=== PATIENT | female | born 1965 | race Caucasian/White ===

== ENCOUNTER 2020-09-21 16:41 | Emergency (ER) | payer BC, MEDICAID ==
[~2020-09-21] VITALS: Ht 157.5 cm; Wt 69.9 kg
[2020-09-21 16:47] VITALS: BP 153/82
[2020-09-21] MEDS ORDERED: ALBUTEROL SULFATE/IPRATROPIU 3 ML SOL IH ONE (17:45)
[2020-09-21] MEDS ORDERED: predniSONE 20 MG TAB PO ONE (17:45)
[2020-09-21] MEDS ORDERED: ALBUTEROL 0.083% 2.5 MG/3 ML NEBU INH ONE (17:45)
--- NOTE | 2020-09-21 17:45 | NUR ---
55 YEAR OLD FEMALE COMPLAINS OF COUGH, SOB, AND CHEST PAIN X 3 DAYS. PT WHEEZING BILATERAL UPON AUSCULTATION. PT AOX4, BREATHING EVEN AND UNLABORED, SKIN WARM AND DRY. BED IN LOWEST POSITION, LOCKED, BED RAIL UPX1. PMH - HTN, DM2, ASTHMA, COPD ALLERGIES - NKA
[2020-09-21] MEDS ORDERED: PRED20TA5 PO (18:51)
[2020-09-21] MEDS ORDERED: IBUP-2213 PO (18:51)
[2020-09-21 19:08] VITALS: BP 153/82
--- NOTE | 2020-09-21 19:08 | NUR ---
Patient discharged with v/s stable. Written and verbal after care instructions about asthma, chest pain given and explained. Patient alert, oriented and verbalized understanding of instructions. Ambulatory with steady gait. All questions addressed prior to discharge. ID band removed. Patient advised to follow up with PMD. Rx of ibuprofen, prednisoen given. Patient educated on indication of medication including possible reaction and side effects. Opportunity to ask questions provided and answered.
== END 2020-09-21 19:08 | disposition home or self-care (01) ==
LOC: MED 16:41
DX: R07.9 Chest pain, unspecified (principal); J45.901 Unspecified asthma with (acute) exacerbation; E11.9 Type 2 diabetes mellitus without complications; I10 Essential (primary) hypertension; Z90.49 Acquired absence of other specified parts of digestive tract
CPT/HCPCS: 71045; 81002; 81025; 93005; 94640; 99283; J7512; J7613

== ENCOUNTER 2021-06-10 12:05 | Emergency (ER) | payer BC, MEDICAID ==
[~2021-06-10] VITALS: Ht 157.5 cm; Wt 75.3 kg
[~2021-06-10 12:05] MED LIST: IBUP-2213 PO; PRED20TA5 PO
[2021-06-10 12:14] VITALS: BP 151/69
--- NOTE | 2021-06-10 12:20 | NUR ---
PATIENT AMBULATED TO BED 3.
--- NOTE | 2021-06-10 12:49 | NUR ---
[employer] AT PT BEDSIDE.
[2021-06-10 13:41] LABS: BASOPHILS # (AUTO) 0.1 K/uL (0.00-0.22); BASOPHILS % (AUTO) 0.9 % (0.0-2.0); EOSINOPHILS # (AUTO) 0.1 K/uL (0-0.4); EOSINOPHILS % (AUTO) 2.6 % (0.0-4.0); HEMATOCRIT 39.6 % (36-48); HEMOGLOBIN 13.4 g/dL (12.0-16.0); LYMPHOCYTES # (AUTO) 2.1 K/uL (2.5-16.5); MEAN CORPUSCULAR HEMOGLOBIN 29 pg (27-31); MEAN CORPUSCULAR HGB CONC 34 g/dL (33-37); MEAN CORPUSCULAR VOLUME 84.5 fL (80-94); MONOCYTES # (AUTO) 0.4 K/uL (0.8-1.0); MONOCYTES % (AUTO) 6.3 % (1.7-9.3); NEUTROPHILS # (AUTO) 3.1 K/uL (1.8-7.7); NEUTROPHILS % (AUTO) 54.2 % (42.2-75.2); PLATELET COUNT (AUTO) 311 K/uL (140-450); RED BLOOD CELL COUNT(AUTO) 4.68 MIL/uL (4.20-5.40); WHITE BLOOD COUNT (AUTO) 5.8 K/uL (4.8-10.8)
[2021-06-10 13:54] LABS: ANION GAP 13.5 (8-16); CARBON DIOXIDE 27.7 mmol/L (21-32); CREATININE 0.8 mg/dL (0.6-1.3); POTASSIUM 3.2 mmol/L (3.5-5.1)
--- NOTE | 2021-06-10 14:05 | NUR ---
Patient appears to be resting comfortably in bed. Vital Signs within normal limits. Respirations even and unlabored. Safety measures in place and Call light in reach
[2021-06-10] MEDS ORDERED: PRED20TA5 PO (14:10)
[2021-06-10] MEDS ORDERED: IBUP-2213 PO (14:10)
[2021-06-10 14:35] VITALS: BP 129/72
--- NOTE | 2021-06-10 14:35 | NUR ---
Patient discharged with v/s stable. Written and verbal after care instructions given and explained with teachback. Patient alert, oriented and verbalized understanding of instructions. Ambulatory with steady gait. All questions addressed prior to discharge. ID band removed. Patient advised to follow up with PMD. Rx of IBUPROFEN/PREDNISONE given. Patient educated on indication of medication including possible reaction and side effects. Opportunity to ask questions provided and answered.
== END 2021-06-10 14:35 | disposition home or self-care (01) ==
LOC: MED 12:05
DX: R05.9 Cough, unspecified (principal); R06.02 Shortness of breath; R42 Dizziness and giddiness; E11.9 Type 2 diabetes mellitus without complications; I10 Essential (primary) hypertension; J45.909 Unspecified asthma, uncomplicated; Z90.49 Acquired absence of other specified parts of digestive tract
CPT/HCPCS: 36415; 70450; 71045; 80048; 81002; 85025; 99285; Q0092

== ENCOUNTER 2023-10-25 21:02 | Inpatient (IN) | payer BC, MEDICAID ==
[~2023-10-25] VITALS: Ht 157.5 cm; Wt 81.8 kg
[~2023-10-25 21:02] MED LIST changes: +ACET-8905 PO; +ALBU1.25 IH; +AMLO5TAB PO; +ATA25 PO; +AZIT250T4 PO; +BACL10TA4 PO; +BENZ200C4 PO; +ERGO-30 PO; +FEXO1TAB PO; +FURO-572 PO; +GABA400C PO; +HUM SUBQ; +INSU100S22 SUBQ; +INSU300I2 SQ; +LEVO0.2T5 PO; +LOSA-269 PO; +MECL-303 PO; +MEMA10TA22 PO; +METH4TAB1 PO; +MONT-72 PO; +PAM25 PO; +PANT40EC PO; +PHE25S RC; +POTA10TA70 PO; -PRED20TA5 PO; +PRON INH; +SAXA5TAB PO; +UMEC1POW IH; +[UNRECOGNIZED DRUG - CODE] PO
[2023-10-25 21:04] VITALS: BP 155/88; PULSE 110; RESP 28; TEMP 97.8; O2SAT 94
[2023-10-25 21:40] LABS: BASOPHILS # (AUTO) 0.1 K/uL (0.00-0.22); BASOPHILS % (AUTO) 1.3 % (0.0-2.0); EOSINOPHILS # (AUTO) 0.3 K/uL (0-0.4); EOSINOPHILS % (AUTO) 2.8 % (0.0-4.0); HEMATOCRIT 37.8 % (36-48); HEMOGLOBIN 12.4 g/dL (12.0-16.0); LYMPHOCYTES # (AUTO) 1.9 K/uL (2.5-16.5); LYMPHOCYTES % (AUTO) 20.2 % (20.5-51.1); MEAN CORPUSCULAR HEMOGLOBIN 27 pg (27-31); MEAN CORPUSCULAR HGB CONC 33 g/dL (33-37); MEAN CORPUSCULAR VOLUME 82.8 fL (80-94); MONOCYTES # (AUTO) 0.4 K/uL (0.8-1.0); MONOCYTES % (AUTO) 4.6 % (1.7-9.3); NEUTROPHILS # (AUTO) 6.6 K/uL (1.8-7.7); NEUTROPHILS % (AUTO) 71.1 % (42.2-75.2); PLATELET COUNT (AUTO) 300 K/uL (140-450); RED BLOOD CELL COUNT(AUTO) 4.56 MIL/uL (4.20-5.40); WHITE BLOOD COUNT (AUTO) 9.2 K/uL (4.8-10.8)
[2023-10-25 21:46] LABS: ANION GAP 16.7 (8-16); CALCIUM 8.7 mg/dL (8.5-10.1); CARBON DIOXIDE 25.5 mmol/L (21-32); POTASSIUM 3.2 mmol/L (3.5-5.1)
[2023-10-25 21:51] LABS: INR 1.07 (0.8-1.2); PARTIAL THROMBOPLASTIN TIME 24.5 secs (22-35.6); PROTHROMBIN TIME 11.2 secs (10.8-13.4)
[2023-10-25] MEDS: FUROSEMIDE 40 MG/4 ML VIAL IVP ONE (22:09)
[2023-10-25] MEDS: ALBUTEROL SULFATE/IPRATROPIU 3 ML SOL IH ONE (22:18)
[2023-10-25 22:19] VITALS: PULSE 103; RESP 24; O2SAT 97
[2023-10-25] MEDS ORDERED: methylPREDNISolone SS 125 MG in WATER STERILE 2 ML IV ONE (22:50)
[2023-10-25] MEDS: methylPREDNISolone SS 125 MG/2 ML VIAL IVP ONE (23:06)
[2023-10-25] MEDS: MAG SULF 2000 MG/WATER PREMIX 50 ML IV ONE (23:11)
[2023-10-25] MEDS ORDERED: PIPERACILLIN/TAZOBACTAM 3.375 GM VIAL IV ONE (23:12)
[2023-10-25] MEDS: PIPERACILLIN/TAZOBACTAM 3.375 GM in DEXTROSE 5% 50 ML IV ONE (23:21)
[2023-10-25] MEDS ORDERED: AZITHROMYCIN 500 MG INJ VIAL IV ONE (23:26)
[2023-10-25] MEDS: AZITHROMYCIN 500 MG in DEXTROSE 5% 250 ML IV ONE (23:39)
[2023-10-25 23:58] LABS: LACTIC ACID 3.5 mmol/L (0.4-2.0)
[2023-10-26] VITALS (9 sets, daily range): BP systolic 130–145; BP diastolic 70–87; PULSE 83–117; RESP 18–22; TEMP 98–98.6; O2SAT 95–100
[2023-10-26] MEDS: ALBUTEROL 0.083% 2.5 MG/3 ML NEBU INH ONE (03:16)
[2023-10-26] MEDS ORDERED: ACETAMINOPHEN EXTRA STRENGTH 500 MG TAB PO ONE (05:45)
[2023-10-26] MEDS: HYDROcodone/APAP 5/325 MG 1 TAB TAB PO PRN (05:52)
[2023-10-26 07:33] LABS: BASOPHILS % (AUTO) 0.3 % (0.0-2.0); HEMATOCRIT 37.8 % (36-48); HEMOGLOBIN 12.6 g/dL (12.0-16.0); LYMPHOCYTES # (AUTO) 0.4 K/uL (2.5-16.5); LYMPHOCYTES % (AUTO) 4.7 % (20.5-51.1); MEAN CORPUSCULAR HEMOGLOBIN 27 pg (27-31); MEAN CORPUSCULAR HGB CONC 33 g/dL (33-37); MEAN CORPUSCULAR VOLUME 82.4 fL (80-94); MONOCYTES # (AUTO) 0.1 K/uL (0.8-1.0); MONOCYTES % (AUTO) 0.8 % (1.7-9.3); NEUTROPHILS # (AUTO) 8.3 K/uL (1.8-7.7); NEUTROPHILS % (AUTO) 94.2 % (42.2-75.2); PLATELET COUNT (AUTO) 301 K/uL (140-450); RED BLOOD CELL COUNT(AUTO) 4.59 MIL/uL (4.20-5.40); RED CELL DISTRIBUTION WIDTH 14.9 % (11.6-13.7); WHITE BLOOD COUNT (AUTO) 8.8 K/uL (4.8-10.8)
[2023-10-26] MEDS ORDERED: [UNRECOGNIZED DRUG - OTHER] IH SCH (09:00)
[2023-10-26] MEDS: HYDROXYZINE HYDROCHLORIDE 25 MG TAB PO SCH (09:32)
[2023-10-26] MEDS: methylPREDNISolone SS 125 MG/2 ML VIAL IVP SCH (09:32)
[2023-10-26] MEDS: PANTOPRAZOLE 40 MG TABEC PO SCH (09:33)
[2023-10-26] MEDS: LOSARTAN 25 MG TAB PO SCH (09:33)
[2023-10-26] MEDS: BACLOFEN 10 MG TAB PO SCH (09:33)
[2023-10-26] MEDS: MONTELUKAST SODIUM 10 MG TAB PO SCH (09:34)
[2023-10-26] MEDS: amLODIPine 5 MG TAB PO SCH (09:34)
[2023-10-26] MEDS: LEVOTHYROXINE 0.1 MG TAB PO SCH (09:34)
[2023-10-26] MEDS: GABAPENTIN 100 MG CAP PO SCH (09:35)
[2023-10-26] MEDS: FUROSEMIDE 20 MG/2 ML VIAL IVP SCH (10:26)
[2023-10-26] MEDS: POTASSIUM CHLORIDE 10 MEQ TABER PO SCH (10:26)
[2023-10-26] MEDS ORDERED: DEXTROSE 50% 50 ML SYR IVP PRN (11:45)
[2023-10-26 11:50] LABS: ANION GAP 13.7 (8-16); CALCIUM 8.6 mg/dL (8.5-10.1); CARBON DIOXIDE 29.3 mmol/L (21-32); CREATININE 1.1 mg/dL (0.6-1.3)
[2023-10-26] MEDS: POTASSIUM CHLORIDE 40 MEQ, LIDOCAINE 1% 25 MG in NACL 0.9% 250 ML IV SCH (12:13)
[2023-10-26] MEDS: ALBUTEROL SULFATE/IPRATROPIU 3 ML SOL IH SCH (15:36)
[2023-10-26] MEDS: BLOOD GLUCOSE MONITORING 1 DEV DEV FS SCH (16:41)
[2023-10-26] MEDS: NORTRIPTYLINE 25 MG CAP PO SCH (17:12)
[2023-10-26] MEDS: INSULIN LISPRO SLIDING SCALE 100 UNITS/ML VIAL SUBQ PRN (17:20)
[2023-10-26] MEDS: FUROSEMIDE 40 MG/4 ML VIAL IVP SCH (23:09)
[2023-10-26] MEDS: carvediloL 3.125 MG TAB PO SCH (23:10)
[2023-10-26] MEDS: MEMANTINE 10 MG TAB PO SCH (23:11)
[2023-10-27] VITALS (11 sets, daily range): BP systolic 80–140; BP diastolic 48–76; PULSE 76–106; RESP 16–20; TEMP 97–99.8; O2SAT 95–98
[2023-10-27 05:56] LABS: BASOPHILS % (AUTO) 0.1 % (0.0-2.0); HEMATOCRIT 35.2 % (36-48); HEMOGLOBIN 11.5 g/dL (12.0-16.0); LYMPHOCYTES # (AUTO) 0.7 K/uL (2.5-16.5); LYMPHOCYTES % (AUTO) 5.1 % (20.5-51.1); MEAN CORPUSCULAR HEMOGLOBIN 27 pg (27-31); MEAN CORPUSCULAR HGB CONC 33 g/dL (33-37); MEAN CORPUSCULAR VOLUME 83.2 fL (80-94); MONOCYTES # (AUTO) 0.1 K/uL (0.8-1.0); MONOCYTES % (AUTO) 1.1 % (1.7-9.3); NEUTROPHILS # (AUTO) 13.2 K/uL (1.8-7.7); NEUTROPHILS % (AUTO) 93.7 % (42.2-75.2); PLATELET COUNT (AUTO) 303 K/uL (140-450); RED BLOOD CELL COUNT(AUTO) 4.24 MIL/uL (4.20-5.40); RED CELL DISTRIBUTION WIDTH 15.3 % (11.6-13.7)
[2023-10-27 06:10] LABS: WHITE BLOOD COUNT (AUTO) 14.1 K/uL (4.8-10.8)
[2023-10-27 06:44] LABS: CALCIUM 8.5 mg/dL (8.5-10.1); CARBON DIOXIDE 28.3 mmol/L (21-32); CREATININE 1.1 mg/dL (0.6-1.3); POTASSIUM 3.3 mmol/L (3.5-5.1)
[2023-10-27] MEDS: LEVOTHYROXINE 0.1 MG TAB PO SCH (07:01)
[2023-10-27] MEDS: SPIRONOLACTONE 25 MG TAB PO SCH (09:51)
[2023-10-27] MEDS: ATORVASTATIN 20 MG TAB PO SCH (09:54)
[2023-10-27] MEDS: ACETAMINOPHEN EXTRA STRENGTH 500 MG TAB PO SCH (11:13)
[2023-10-27] MEDS: POTASSIUM CHLORIDE 40 MEQ, LIDOCAINE 1% 25 MG in NACL 0.9% 250 ML IV SCH (11:40)
[2023-10-27] MEDS: FUROSEMIDE 40 MG/4 ML VIAL IVP SCH (18:35)
[2023-10-27] MEDS: MIDODRINE 5 MG TAB PO SCH (18:35)
[2023-10-27] MEDS: ALBUTEROL 0.083% 2.5 MG/3 ML NEBU INH PRN (19:48)
[2023-10-27] MEDS: DOCUSATE SODIUM 100 MG GELCAP PO SCH (21:59)
[2023-10-28] VITALS (14 sets, daily range): BP systolic 119–154; BP diastolic 61–97; PULSE 79–108; RESP 16–25; TEMP 97–98.1; O2SAT 93–100
[2023-10-28 05:57] LABS: HEMATOCRIT 36.7 % (36-48); HEMOGLOBIN 11.9 g/dL (12.0-16.0); LYMPHOCYTES # (AUTO) 0.6 K/uL (2.5-16.5); LYMPHOCYTES % (AUTO) 3.5 % (20.5-51.1); MEAN CORPUSCULAR HEMOGLOBIN 27 pg (27-31); MEAN CORPUSCULAR HGB CONC 33 g/dL (33-37); MEAN CORPUSCULAR VOLUME 82.6 fL (80-94); MONOCYTES # (AUTO) 0.2 K/uL (0.8-1.0); NEUTROPHILS # (AUTO) 15.9 K/uL (1.8-7.7); NEUTROPHILS % (AUTO) 95.5 % (42.2-75.2); PLATELET COUNT (AUTO) 339 K/uL (140-450); RED BLOOD CELL COUNT(AUTO) 4.44 MIL/uL (4.20-5.40); WHITE BLOOD COUNT (AUTO) 16.7 K/uL (4.8-10.8)
[2023-10-28 06:27] LABS: ANION GAP 12.4 (8-16); CALCIUM 8.6 mg/dL (8.5-10.1); CARBON DIOXIDE 28.9 mmol/L (21-32); CREATININE 1.1 mg/dL (0.6-1.3); POTASSIUM 3.3 mmol/L (3.5-5.1)
[2023-10-28] MEDS: GABAPENTIN 200 MG, GABAPENTIN 600 MG PO SCH (09:45)
[2023-10-28] MEDS: GABAPENTIN 300 MG CAP ONE ×3 (09:45→18:07)
[2023-10-28] MEDS: GABAPENTIN 100 MG CAP ONE ×3 (09:45→18:08)
[2023-10-28] MEDS: AZITHROMYCIN 500 MG in DEXTROSE 5% 250 ML IV SCH (12:00)
[2023-10-28] MEDS: KCL 20 MEQ IN 100 mL PREMIX 200 ML IV SCH (12:00)
[2023-10-28] MEDS: POTASSIUM CHLORIDE 20% 40 MEQ/15 ML UDC PO SCH (17:09)
[2023-10-29] VITALS (9 sets, daily range): BP systolic 131–157; BP diastolic 90–92; PULSE 60–100; RESP 18–21; TEMP 97.6–98.6; O2SAT 93–99
[2023-10-29] MEDS: INSULIN LANTUS 100 UNITS/ML 10 ML VIAL SUBQ PRN (00:15)
[2023-10-29 06:20] LABS: BASOPHILS % (AUTO) 0.1 % (0.0-2.0); HEMATOCRIT 37.1 % (36-48); HEMOGLOBIN 12.1 g/dL (12.0-16.0); LYMPHOCYTES # (AUTO) 0.6 K/uL (2.5-16.5); LYMPHOCYTES % (AUTO) 5.3 % (20.5-51.1); MEAN CORPUSCULAR HEMOGLOBIN 27 pg (27-31); MEAN CORPUSCULAR HGB CONC 33 g/dL (33-37); MEAN CORPUSCULAR VOLUME 82.7 fL (80-94); MONOCYTES # (AUTO) 0.2 K/uL (0.8-1.0); MONOCYTES % (AUTO) 2.1 % (1.7-9.3); NEUTROPHILS # (AUTO) 10.3 K/uL (1.8-7.7); NEUTROPHILS % (AUTO) 92.5 % (42.2-75.2); PLATELET COUNT (AUTO) 311 K/uL (140-450); RED BLOOD CELL COUNT(AUTO) 4.48 MIL/uL (4.20-5.40); WHITE BLOOD COUNT (AUTO) 11.1 K/uL (4.8-10.8)
[2023-10-29 06:59] LABS: ANION GAP 10.4 (8-16); CALCIUM 9.1 mg/dL (8.5-10.1); CARBON DIOXIDE 32.1 mmol/L (21-32); POTASSIUM 3.5 mmol/L (3.5-5.1)
[2023-10-29] MEDS: GABAPENTIN 300 MG CAP ONE ×3 (09:04→17:25)
[2023-10-29] MEDS: GABAPENTIN 100 MG CAP ONE ×3 (09:04→17:25)
[2023-10-29] MEDS: FUROSEMIDE 40 MG/4 ML VIAL IVP SCH ×2 (14:00→22:00)
[2023-10-29] MEDS: INSULIN LANTUS 100 UNITS/ML 10 ML VIAL SUBQ SCH (22:42)
[2023-10-30] VITALS (9 sets, daily range): BP systolic 125–135; BP diastolic 62–77; PULSE 62–92; RESP 18–21; TEMP 97–98.1; O2SAT 93–97
[2023-10-30 06:19] LABS: CARBON DIOXIDE 35.4 mmol/L (21-32); CREATININE 1.2 mg/dL (0.6-1.3); POTASSIUM 3.4 mmol/L (3.5-5.1)
[2023-10-30 06:38] LABS: BASOPHILS % (AUTO) 0.1 % (0.0-2.0); HEMATOCRIT 37.6 % (36-48); HEMOGLOBIN 12.2 g/dL (12.0-16.0); LYMPHOCYTES # (AUTO) 0.5 K/uL (2.5-16.5); LYMPHOCYTES % (AUTO) 5.4 % (20.5-51.1); MEAN CORPUSCULAR HEMOGLOBIN 27 pg (27-31); MEAN CORPUSCULAR HGB CONC 33 g/dL (33-37); MEAN CORPUSCULAR VOLUME 82.7 fL (80-94); MONOCYTES # (AUTO) 0.3 K/uL (0.8-1.0); NEUTROPHILS # (AUTO) 8.8 K/uL (1.8-7.7); NEUTROPHILS % (AUTO) 91.5 % (42.2-75.2); PLATELET COUNT (AUTO) 324 K/uL (140-450); RED BLOOD CELL COUNT(AUTO) 4.55 MIL/uL (4.20-5.40); RED CELL DISTRIBUTION WIDTH 14.6 % (11.6-13.7); WHITE BLOOD COUNT (AUTO) 9.6 K/uL (4.8-10.8)
[2023-10-30] MEDS: GABAPENTIN 300 MG CAP ONE ×3 (09:52→17:56)
[2023-10-30] MEDS: GABAPENTIN 100 MG CAP ONE ×3 (09:52→17:55)
[2023-10-30] MEDS ORDERED: POTASSIUM CHLORIDE 10 MEQ TABER PO SCH (11:25)
[2023-10-30] MEDS: POTASSIUM CHLORIDE 20% 40 MEQ/15 ML UDC PO SCH (12:03)
[2023-10-30] MEDS: metOLazone 5 MG TAB PO SCH (12:03)
[2023-10-30] MEDS: INSULIN LISPRO 100 UNITS/ML VIAL SUBQ ONE (18:23)
[2023-10-30] MEDS: INSULIN LANTUS 100 UNITS/ML 10 ML VIAL SUBQ SCH (21:45)
[2023-10-31] VITALS (11 sets, daily range): BP systolic 110–137; BP diastolic 54–84; PULSE 81–86; RESP 18–22; TEMP 96.9–98.3; O2SAT 96–99
[2023-10-31 05:56] LABS: EOSINOPHILS % (AUTO) 0.1 % (0.0-4.0); HEMATOCRIT 42.2 % (36-48); LYMPHOCYTES # (AUTO) 0.6 K/uL (2.5-16.5); LYMPHOCYTES % (AUTO) 7.3 % (20.5-51.1); MEAN CORPUSCULAR HEMOGLOBIN 27 pg (27-31); MEAN CORPUSCULAR HGB CONC 33 g/dL (33-37); MEAN CORPUSCULAR VOLUME 82.1 fL (80-94); MONOCYTES # (AUTO) 0.3 K/uL (0.8-1.0); MONOCYTES % (AUTO) 3.2 % (1.7-9.3); NEUTROPHILS # (AUTO) 7.9 K/uL (1.8-7.7); NEUTROPHILS % (AUTO) 89.4 % (42.2-75.2); PLATELET COUNT (AUTO) 350 K/uL (140-450); RED BLOOD CELL COUNT(AUTO) 5.14 MIL/uL (4.20-5.40); RED CELL DISTRIBUTION WIDTH 14.5 % (11.6-13.7); WHITE BLOOD COUNT (AUTO) 8.8 K/uL (4.8-10.8)
[2023-10-31 06:19] LABS: ANION GAP 11.6 (8-16); CALCIUM 9.8 mg/dL (8.5-10.1); CARBON DIOXIDE 35.6 mmol/L (21-32); CREATININE 1.4 mg/dL (0.6-1.3); POTASSIUM 3.2 mmol/L (3.5-5.1)
[2023-10-31] MEDS: GABAPENTIN 300 MG CAP ONE (09:42)
[2023-10-31] MEDS: GABAPENTIN 100 MG CAP ONE (09:43)
[2023-10-31] MEDS: GABAPENTIN 300 MG CAP PO SCH (13:00)
[2023-11-01] VITALS (10 sets, daily range): BP systolic 109–154; BP diastolic 66–79; PULSE 74–88; RESP 18–24; TEMP 96.5–97.5; O2SAT 95–99
[2023-11-01 07:07] LABS: BASOPHILS % (AUTO) 0.2 % (0.0-2.0); EOSINOPHILS % (AUTO) 0.1 % (0.0-4.0); HEMATOCRIT 45.5 % (36-48); HEMOGLOBIN 15.1 g/dL (12.0-16.0); LYMPHOCYTES # (AUTO) 0.8 K/uL (2.5-16.5); LYMPHOCYTES % (AUTO) 7.8 % (20.5-51.1); MEAN CORPUSCULAR HEMOGLOBIN 27 pg (27-31); MEAN CORPUSCULAR HGB CONC 33 g/dL (33-37); MEAN CORPUSCULAR VOLUME 81.5 fL (80-94); MONOCYTES # (AUTO) 0.3 K/uL (0.8-1.0); MONOCYTES % (AUTO) 3.3 % (1.7-9.3); NEUTROPHILS # (AUTO) 8.8 K/uL (1.8-7.7); NEUTROPHILS % (AUTO) 88.6 % (42.2-75.2); PLATELET COUNT (AUTO) 370 K/uL (140-450); RED BLOOD CELL COUNT(AUTO) 5.58 MIL/uL (4.20-5.40); RED CELL DISTRIBUTION WIDTH 14.5 % (11.6-13.7); WHITE BLOOD COUNT (AUTO) 9.9 K/uL (4.8-10.8)
[2023-11-01 07:48] LABS: ANION GAP 13.8 (8-16); CALCIUM 9.7 mg/dL (8.5-10.1); CARBON DIOXIDE 32.4 mmol/L (21-32); CREATININE 1.3 mg/dL (0.6-1.3); POTASSIUM 3.2 mmol/L (3.5-5.1)
[2023-11-01] MEDS: POTASSIUM CHLORIDE 10 MEQ TABER PO SCH (09:16)
[2023-11-02 04:00] VITALS: BP 123/75; PULSE 88; RESP 18; TEMP 97.5; O2SAT 99
[2023-11-02 07:22] LABS: BASOPHILS % (AUTO) 0.1 % (0.0-2.0); HEMATOCRIT 44.2 % (36-48); HEMOGLOBIN 14.6 g/dL (12.0-16.0); LYMPHOCYTES # (AUTO) 0.8 K/uL (2.5-16.5); MEAN CORPUSCULAR HEMOGLOBIN 27 pg (27-31); MEAN CORPUSCULAR HGB CONC 33 g/dL (33-37); MEAN CORPUSCULAR VOLUME 82.2 fL (80-94); MONOCYTES # (AUTO) 0.6 K/uL (0.8-1.0); MONOCYTES % (AUTO) 4.8 % (1.7-9.3); NEUTROPHILS # (AUTO) 11.5 K/uL (1.8-7.7); NEUTROPHILS % (AUTO) 89.1 % (42.2-75.2); PLATELET COUNT (AUTO) 374 K/uL (140-450); RED BLOOD CELL COUNT(AUTO) 5.38 MIL/uL (4.20-5.40); RED CELL DISTRIBUTION WIDTH 14.4 % (11.6-13.7); WHITE BLOOD COUNT (AUTO) 12.9 K/uL (4.8-10.8)
[2023-11-02 07:53] LABS: ANION GAP 14.5 (8-16); CALCIUM 9.1 mg/dL (8.5-10.1); CARBON DIOXIDE 32.9 mmol/L (21-32); CREATININE 1.3 mg/dL (0.6-1.3); POTASSIUM 3.4 mmol/L (3.5-5.1)
[2023-11-02 07:54] VITALS: O2SAT 99
[2023-11-02 08:00] VITALS: PULSE 85; RESP 18; O2SAT 97
[2023-11-02] MEDS: methylPREDNISolone SS 40 MG/ML VIAL IVP SCH (12:28)
[2023-11-02] MEDS: ACETAMINOPHEN EXTRA STRENGTH 500 MG TAB PO PRN (17:27)
[2023-11-02 20:00] VITALS: BP 155/101; PULSE 85; PULSE 89; RESP 18; RESP 23; TEMP 97.5; O2SAT 97; O2SAT 99
[2023-11-02] MEDS ORDERED: ALUMINUM HYD/MAG/SIMETHICONE 30 ML UDC PO PRN (23:45)
[2023-11-03] VITALS (10 sets, daily range): BP systolic 116–143; BP diastolic 69–86; PULSE 78–96; RESP 16–20; TEMP 96.3–98.5; O2SAT 94–100
[2023-11-03] MEDS: MECLIZINE 25 MG TAB PO PRN (00:11)
[2023-11-03 06:20] LABS: BASOPHILS % (AUTO) 0.1 % (0.0-2.0); HEMATOCRIT 42.2 % (36-48); HEMOGLOBIN 14.2 g/dL (12.0-16.0); LYMPHOCYTES # (AUTO) 0.8 K/uL (2.5-16.5); LYMPHOCYTES % (AUTO) 5.6 % (20.5-51.1); MEAN CORPUSCULAR HEMOGLOBIN 27 pg (27-31); MEAN CORPUSCULAR HGB CONC 34 g/dL (33-37); MEAN CORPUSCULAR VOLUME 81.3 fL (80-94); MONOCYTES # (AUTO) 0.9 K/uL (0.8-1.0); MONOCYTES % (AUTO) 6.6 % (1.7-9.3); NEUTROPHILS % (AUTO) 87.7 % (42.2-75.2); PLATELET COUNT (AUTO) 363 K/uL (140-450); RED BLOOD CELL COUNT(AUTO) 5.19 MIL/uL (4.20-5.40); RED CELL DISTRIBUTION WIDTH 14.1 % (11.6-13.7); WHITE BLOOD COUNT (AUTO) 13.7 K/uL (4.8-10.8)
[2023-11-03 06:33] LABS: ANION GAP 11.2 (8-16); CALCIUM 8.9 mg/dL (8.5-10.1); CARBON DIOXIDE 34.4 mmol/L (21-32); CREATININE 1.2 mg/dL (0.6-1.3); POTASSIUM 3.6 mmol/L (3.5-5.1)
[2023-11-04 04:00] VITALS: BP 116/75; PULSE 80; RESP 18; TEMP 98; O2SAT 96
[2023-11-04 05:51] LABS: BASOPHILS % (AUTO) 0.1 % (0.0-2.0); HEMATOCRIT 41.2 % (36-48); HEMOGLOBIN 13.7 g/dL (12.0-16.0); LYMPHOCYTES # (AUTO) 0.7 K/uL (2.5-16.5); LYMPHOCYTES % (AUTO) 5.8 % (20.5-51.1); MEAN CORPUSCULAR HEMOGLOBIN 27 pg (27-31); MEAN CORPUSCULAR HGB CONC 33 g/dL (33-37); MEAN CORPUSCULAR VOLUME 81.9 fL (80-94); MONOCYTES # (AUTO) 0.6 K/uL (0.8-1.0); MONOCYTES % (AUTO) 4.7 % (1.7-9.3); NEUTROPHILS # (AUTO) 10.9 K/uL (1.8-7.7); NEUTROPHILS % (AUTO) 89.4 % (42.2-75.2); PLATELET COUNT (AUTO) 338 K/uL (140-450); RED BLOOD CELL COUNT(AUTO) 5.04 MIL/uL (4.20-5.40); RED CELL DISTRIBUTION WIDTH 13.8 % (11.6-13.7); WHITE BLOOD COUNT (AUTO) 12.2 K/uL (4.8-10.8)
[2023-11-04 06:55] LABS: ANION GAP 11.9 (8-16); CALCIUM 8.8 mg/dL (8.5-10.1); CARBON DIOXIDE 33.8 mmol/L (21-32); POTASSIUM 3.7 mmol/L (3.5-5.1)
[2023-11-04 07:40] LABS: MAGNESIUM 2.5 mg/dL (1.8-2.4); PHOSPHORUS 3.6 mg/dL (2.5-4.9)
[2023-11-04 08:13] VITALS: PULSE 82; RESP 20; O2SAT 98
[2023-11-04 08:17] VITALS: PULSE 99
[2023-11-04 08:18] VITALS: RESP 20; O2SAT 94
[2023-11-04 08:21] VITALS: O2SAT 98
[2023-11-04] MEDS ORDERED: METH4TAB1 PO (11:20)
[2023-11-04] MEDS ORDERED: FURO-572 PO (11:21)
[2023-11-04] MEDS ORDERED: CARV3.122 PO (11:27)
[2023-11-04] MEDS ORDERED: LOSA-272 PO (11:28)
[2023-11-04] MEDS ORDERED: AMLO5TAB PO (11:29)
[2023-11-04] MEDS ORDERED: SPIR50TA PO (11:30)
[2023-11-04] MEDS ORDERED: PRON INH (11:58)
[2023-11-04] MEDS ORDERED: SAXA5TAB PO (12:00)
[2023-11-04] MEDS ORDERED: INSU100S22 SUBQ (12:01)
[2023-11-04] MEDS ORDERED: INSU100I9 SQ (12:05)
[2023-11-04 14:37] VITALS: BP 125/78; PULSE 68; RESP 20; TEMP 97.1
== END 2023-11-04 15:22 | disposition home health service (06) | DRG 177 ==
LOC: MED 21:02 → MTU 10-26 05:56
PROVIDERS: ADMIT Student in an Organized Health Care Education/Training Program; ATTEND Student in an Organized Health Care Education/Training Program
DX: J69.0 Pneumonitis due to inhalation of food and vomit (principal); I50.23 Acute on chronic systolic (congestive) heart failure; J44.0 Chronic obstructive pulmonary disease with (acute) lower respiratory infection; I42.9 Cardiomyopathy, unspecified; R65.10 Systemic inflammatory response syndrome (SIRS) of non-infectious origin without acute organ dysfunction; I11.0 Hypertensive heart disease with heart failure; E11.9 Type 2 diabetes mellitus without complications; Z66 Do not resuscitate; Z88.8 Allergy status to other drugs, medicaments and biological substances; Z91.041 Radiographic dye allergy status; Z79.899 Other long term (current) drug therapy; Z90.49 Acquired absence of other specified parts of digestive tract; Z91.148 Patient's other noncompliance with medication regimen for other reason; J18.9 Pneumonia, unspecified organism
CPT/HCPCS: 36415; 70450; 71045; 71046; 80048; 82948; 83036; 83605; 83735; 83880; 84100; 84484; 85025; 85610; 85730; 87040; 87081; 93005; 94617; 94640; 96365; 96368; 96375; 97110; 97116; 97163-GP; 97530; 99285; J0456; J0696; J1815; J1940; J2001; J2543; J2919; J2920; J3475; J3480; J7030; J7060; J7613; J8597; Q0092

== ENCOUNTER 2024-01-09 12:17 | Inpatient (IN) | payer BC, MEDICAID ==
[~2024-01-09] VITALS: Ht 157.5 cm; Wt 79.4 kg
[2024-01-09] VITALS (11 sets, daily range): BP systolic 110–152; BP diastolic 68–96; PULSE 94–112; RESP 18–24; TEMP 97.4–97.5; O2SAT 87–97
[~2024-01-09 12:17] MED LIST changes: -ACET-8905 PO; -ALBU1.25 IH; -ATA25 PO; -AZIT250T4 PO; -BACL10TA4 PO; +CARV3.122 PO; -FEXO1TAB PO; -IBUP-2213 PO; +LOSA-272 PO; -MECL-303 PO; -PAM25 PO; -PHE25S RC; -POTA10TA70 PO; +SPIR50TA PO; -UMEC1POW IH
[2024-01-09] MEDS ORDERED: ALBUTEROL SULFATE/IPRATROPIU 3 ML SOL IH ONE ×2 (12:25→17:47)
[2024-01-09] MEDS ORDERED: ALBUTEROL 0.083% 2.5 MG/3 ML NEBU INH ONE (12:38)
[2024-01-09] MEDS ORDERED: IPRATROPIUM 0.02% 0.5 MG/2.5 ML NEBU INH ONE (12:39)
[2024-01-09] MEDS: methylPREDNISolone SS 125 MG/2 ML VIAL IVP ONE (12:49)
[2024-01-09] MEDS: LORazepam 2 MG/ML VIAL IVP ONE (12:51)
[2024-01-09] MEDS: ALBUTEROL 0.083% 2.5 MG/3 ML NEBU INH ONE (13:02)
[2024-01-09] MEDS: ALBUTEROL SULFATE/IPRATROPIU 3 ML SOL IH ONE ×2 (13:02→18:04)
[2024-01-09] MEDS: IPRATROPIUM 0.02% 0.5 MG/2.5 ML NEBU INH STA (13:08)
[2024-01-09] MEDS: ALBUTEROL SULFATE/IPRATROPIU 3 ML SOL IH STA (13:08)
[2024-01-09 13:31] LABS: BASOPHILS % (AUTO) 0.4 % (0.0-2.0); EOSINOPHILS # (AUTO) 0.1 K/uL (0-0.4); EOSINOPHILS % (AUTO) 1.1 % (0.0-4.0); HEMATOCRIT 39.6 % (36-48); HEMOGLOBIN 12.7 g/dL (12.0-16.0); LYMPHOCYTES # (AUTO) 1.3 K/uL (2.5-16.5); LYMPHOCYTES % (AUTO) 11.3 % (20.5-51.1); MEAN CORPUSCULAR HEMOGLOBIN 26 pg (27-31); MEAN CORPUSCULAR HGB CONC 32 g/dL (33-37); MEAN CORPUSCULAR VOLUME 81.3 fL (80-94); MONOCYTES # (AUTO) 0.5 K/uL (0.8-1.0); NEUTROPHILS # (AUTO) 9.7 K/uL (1.8-7.7); NEUTROPHILS % (AUTO) 83.2 % (42.2-75.2); PLATELET COUNT (AUTO) 330 K/uL (140-450); RED BLOOD CELL COUNT(AUTO) 4.87 MIL/uL (4.20-5.40); RED CELL DISTRIBUTION WIDTH 15.3 % (11.6-13.7); WHITE BLOOD COUNT (AUTO) 11.7 K/uL (4.8-10.8)
[2024-01-09] MEDS ORDERED: cefTRIAXone 1,000 MG VIAL ONE (13:50)
[2024-01-09 14:24] LABS: ANION GAP 12.3 (8-16); CALCIUM 8.4 mg/dL (8.5-10.1); CARBON DIOXIDE 28.7 mmol/L (21-32); CREATININE 0.8 mg/dL (0.6-1.3)
[2024-01-09] MEDS ORDERED: MAGNESIUM OXIDE 400 MG TAB PO PRN (14:35)
[2024-01-09] MEDS ORDERED: MAG SULF 2000 MG/WATER PREMIX 50 ML IV PRN (14:35)
[2024-01-09] MEDS ORDERED: MECL-303 PO (14:43)
[2024-01-09] MEDS ORDERED: UMEC1POW IH (14:43)
[2024-01-09] MEDS: MORPHINE SULFATE 2 MG/ML SYR IVP PRN (16:50)
[2024-01-09] MEDS ORDERED: DEXTROSE 50% 50 ML SYR IVP PRN (17:10)
[2024-01-09] MEDS ORDERED: ALBUTEROL 0.083% 2.5 MG/3 ML NEBU INH PRN (17:50)
[2024-01-09] MEDS ORDERED: AZITHROMYCIN 500 MG INJ VIAL IV ONE (18:15)
[2024-01-09] MEDS: AZITHROMYCIN 500 MG in DEXTROSE 5% 250 ML IV SCH (18:23)
[2024-01-09] MEDS: BUDESONIDE 0.5 MG/2 ML NEBU INH SCH (19:30)
[2024-01-09] MEDS: KCL 20 MEQ IN 100 mL PREMIX 200 ML IV PRN (20:01)
[2024-01-09] MEDS: BLOOD GLUCOSE MONITORING 1 DEV DEV FS SCH (20:53)
[2024-01-09] MEDS: FUROSEMIDE 40 MG/4 ML VIAL IVP SCH (21:03)
[2024-01-09] MEDS: INSULIN LISPRO SLIDING SCALE 100 UNITS/ML VIAL SUBQ PRN (21:04)
[2024-01-10] VITALS (14 sets, daily range): BP systolic 111–133; BP diastolic 61–84; PULSE 73–100; RESP 18–24; TEMP 96.9–97.5; O2SAT 97–99
[2024-01-10] MEDS: ACETAMINOPHEN 325 MG TAB PO PRN (01:25)
[2024-01-10 05:39] LABS: BASOPHILS % (AUTO) 0.2 % (0.0-2.0); HEMATOCRIT 34.6 % (36-48); HEMOGLOBIN 11.4 g/dL (12.0-16.0); LYMPHOCYTES % (AUTO) 9.8 % (20.5-51.1); MEAN CORPUSCULAR HEMOGLOBIN 27 pg (27-31); MEAN CORPUSCULAR HGB CONC 33 g/dL (33-37); MEAN CORPUSCULAR VOLUME 80.6 fL (80-94); MONOCYTES # (AUTO) 0.4 K/uL (0.8-1.0); MONOCYTES % (AUTO) 3.8 % (1.7-9.3); NEUTROPHILS # (AUTO) 8.6 K/uL (1.8-7.7); NEUTROPHILS % (AUTO) 86.2 % (42.2-75.2); PLATELET COUNT (AUTO) 311 K/uL (140-450); RED BLOOD CELL COUNT(AUTO) 4.29 MIL/uL (4.20-5.40); RED CELL DISTRIBUTION WIDTH 15.5 % (11.6-13.7)
[2024-01-10] MEDS: LEVOTHYROXINE 0.1 MG TAB PO SCH (05:45)
[2024-01-10 06:04] LABS: ALBUMIN 3.3 g/dL (3.4-5.0); ANION GAP 9.6 (8-16); CALCIUM 8.3 mg/dL (8.5-10.1); CARBON DIOXIDE 30.8 mmol/L (21-32); CREATININE 0.9 mg/dL (0.6-1.3); POTASSIUM 3.4 mmol/L (3.5-5.1); TOTAL BILIRUBIN 0.7 mg/dL (0.0-1.0); TOTAL PROTEIN, SERUM 6.5 g/dL (6.4-8.2)
[2024-01-10] MEDS: LOSARTAN 25 MG TAB PO SCH (08:20)
[2024-01-10] MEDS: amLODIPine 5 MG TAB PO SCH (08:20)
[2024-01-10] MEDS: GABAPENTIN 300 MG CAP PO SCH (08:20)
[2024-01-10] MEDS: GABAPENTIN 100 MG CAP PO SCH (08:20)
[2024-01-10] MEDS: POTASSIUM CHLORIDE 10 MEQ TABER PO PRN (10:06)
[2024-01-10] MEDS: MECLIZINE 25 MG TAB PO PRN (13:03)
[2024-01-10] MEDS: FUROSEMIDE 40 MG/4 ML VIAL IVP SCH ×2 (13:26→20:35)
[2024-01-10] MEDS: ALBUTEROL SULFATE/IPRATROPIU 3 ML SOL IH PRN (16:21)
[2024-01-10] MEDS: ALBUTEROL SULFATE/IPRATROPIU 3 ML SOL IH STA (16:53)
[2024-01-10] MEDS: NYSTATIN CRE 100 MU/GM 15 GM TUBE TP SCH (20:54)
[2024-01-11] VITALS (12 sets, daily range): BP systolic 120–133; BP diastolic 70–84; PULSE 78–94; RESP 18–28; TEMP 97.2–97.8; O2SAT 95–100
[2024-01-11 05:27] LABS: BASOPHILS # (AUTO) 0.1 K/uL (0.00-0.22); BASOPHILS % (AUTO) 0.8 % (0.0-2.0); EOSINOPHILS # (AUTO) 0.2 K/uL (0-0.4); EOSINOPHILS % (AUTO) 1.9 % (0.0-4.0); HEMATOCRIT 35.6 % (36-48); HEMOGLOBIN 11.6 g/dL (12.0-16.0); LYMPHOCYTES # (AUTO) 2.6 K/uL (2.5-16.5); LYMPHOCYTES % (AUTO) 23.3 % (20.5-51.1); MEAN CORPUSCULAR HEMOGLOBIN 26 pg (27-31); MEAN CORPUSCULAR HGB CONC 32 g/dL (33-37); MEAN CORPUSCULAR VOLUME 80.8 fL (80-94); MONOCYTES # (AUTO) 0.7 K/uL (0.8-1.0); MONOCYTES % (AUTO) 6.3 % (1.7-9.3); NEUTROPHILS # (AUTO) 7.5 K/uL (1.8-7.7); NEUTROPHILS % (AUTO) 67.7 % (42.2-75.2); PLATELET COUNT (AUTO) 331 K/uL (140-450); RED BLOOD CELL COUNT(AUTO) 4.41 MIL/uL (4.20-5.40); RED CELL DISTRIBUTION WIDTH 15.6 % (11.6-13.7); WHITE BLOOD COUNT (AUTO) 11.1 K/uL (4.8-10.8)
[2024-01-11 05:52] LABS: ALBUMIN 3.5 g/dL (3.4-5.0); ANION GAP 7.6 (8-16); CALCIUM 8.4 mg/dL (8.5-10.1); CARBON DIOXIDE 34.5 mmol/L (21-32); POTASSIUM 3.1 mmol/L (3.5-5.1); TOTAL BILIRUBIN 0.5 mg/dL (0.0-1.0); TOTAL PROTEIN, SERUM 6.8 g/dL (6.4-8.2)
[2024-01-11] MEDS: ATORVASTATIN 20 MG TAB PO SCH (10:45)
[2024-01-11] MEDS: ALBUTEROL SULFATE/IPRATROPIU 3 ML SOL IH SCH (12:53)
[2024-01-12] VITALS (7 sets, daily range): BP systolic 104–127; BP diastolic 75–79; PULSE 74–97; RESP 19–25; TEMP 97.1–98.4; O2SAT 96–98
[2024-01-12 05:39] LABS: BASOPHILS # (AUTO) 0.1 K/uL (0.00-0.22); EOSINOPHILS # (AUTO) 0.5 K/uL (0-0.4); EOSINOPHILS % (AUTO) 5.2 % (0.0-4.0); HEMOGLOBIN 12.4 g/dL (12.0-16.0); LYMPHOCYTES # (AUTO) 2.5 K/uL (2.5-16.5); LYMPHOCYTES % (AUTO) 26.8 % (20.5-51.1); MEAN CORPUSCULAR HEMOGLOBIN 26 pg (27-31); MEAN CORPUSCULAR HGB CONC 33 g/dL (33-37); MEAN CORPUSCULAR VOLUME 80.7 fL (80-94); MONOCYTES # (AUTO) 0.7 K/uL (0.8-1.0); MONOCYTES % (AUTO) 7.8 % (1.7-9.3); NEUTROPHILS # (AUTO) 5.5 K/uL (1.8-7.7); NEUTROPHILS % (AUTO) 59.2 % (42.2-75.2); PLATELET COUNT (AUTO) 323 K/uL (140-450); RED BLOOD CELL COUNT(AUTO) 4.71 MIL/uL (4.20-5.40); RED CELL DISTRIBUTION WIDTH 15.4 % (11.6-13.7); WHITE BLOOD COUNT (AUTO) 9.2 K/uL (4.8-10.8)
[2024-01-12 06:10] LABS: ALBUMIN 3.4 g/dL (3.4-5.0); ANION GAP 9.9 (8-16); CALCIUM 8.6 mg/dL (8.5-10.1); CARBON DIOXIDE 34.9 mmol/L (21-32); CREATININE 0.9 mg/dL (0.6-1.3); POTASSIUM 3.8 mmol/L (3.5-5.1); TOTAL BILIRUBIN 0.4 mg/dL (0.0-1.0); TOTAL PROTEIN, SERUM 6.9 g/dL (6.4-8.2)
[2024-01-12] MEDS: IPRATROPIUM 0.02% 0.5 MG/2.5 ML NEBU INH PRN (16:14)
[2024-01-13] VITALS (10 sets, daily range): BP systolic 110–135; BP diastolic 61–81; PULSE 83–99; RESP 18–22; TEMP 97–97.9; O2SAT 98–99
[2024-01-13 06:45] LABS: ALBUMIN 3.6 g/dL (3.4-5.0); ANION GAP 8.9 (8-16); CALCIUM 8.7 mg/dL (8.5-10.1); CARBON DIOXIDE 35.7 mmol/L (21-32); CREATININE 0.9 mg/dL (0.6-1.3); POTASSIUM 3.6 mmol/L (3.5-5.1); TOTAL BILIRUBIN 0.4 mg/dL (0.0-1.0); TOTAL PROTEIN, SERUM 7.1 g/dL (6.4-8.2)
[2024-01-13 07:26] LABS: BASOPHILS # (AUTO) 0.1 K/uL (0.00-0.22); BASOPHILS % (AUTO) 0.6 % (0.0-2.0); EOSINOPHILS # (AUTO) 0.4 K/uL (0-0.4); EOSINOPHILS % (AUTO) 4.7 % (0.0-4.0); HEMATOCRIT 38.1 % (36-48); HEMOGLOBIN 12.8 g/dL (12.0-16.0); LYMPHOCYTES # (AUTO) 2.2 K/uL (2.5-16.5); LYMPHOCYTES % (AUTO) 25.3 % (20.5-51.1); MEAN CORPUSCULAR HEMOGLOBIN 27 pg (27-31); MEAN CORPUSCULAR HGB CONC 34 g/dL (33-37); MEAN CORPUSCULAR VOLUME 80.9 fL (80-94); MONOCYTES # (AUTO) 0.7 K/uL (0.8-1.0); MONOCYTES % (AUTO) 7.7 % (1.7-9.3); NEUTROPHILS # (AUTO) 5.4 K/uL (1.8-7.7); NEUTROPHILS % (AUTO) 61.7 % (42.2-75.2); PLATELET COUNT (AUTO) 339 K/uL (140-450); RED BLOOD CELL COUNT(AUTO) 4.71 MIL/uL (4.20-5.40); WHITE BLOOD COUNT (AUTO) 8.8 K/uL (4.8-10.8)
[2024-01-14] VITALS (11 sets, daily range): BP systolic 106–131; BP diastolic 58–84; PULSE 75–89; RESP 2–22; TEMP 97.2–98.1; O2SAT 9–99
[2024-01-14 04:50] LABS: BASOPHILS # (AUTO) 0.2 K/uL (0.00-0.22); EOSINOPHILS # (AUTO) 0.5 K/uL (0-0.4); EOSINOPHILS % (AUTO) 6.4 % (0.0-4.0); HEMATOCRIT 39.8 % (36-48); LYMPHOCYTES # (AUTO) 2.1 K/uL (2.5-16.5); LYMPHOCYTES % (AUTO) 26.1 % (20.5-51.1); MEAN CORPUSCULAR HEMOGLOBIN 26 pg (27-31); MEAN CORPUSCULAR HGB CONC 33 g/dL (33-37); MEAN CORPUSCULAR VOLUME 80.8 fL (80-94); MONOCYTES # (AUTO) 0.6 K/uL (0.8-1.0); MONOCYTES % (AUTO) 7.4 % (1.7-9.3); NEUTROPHILS # (AUTO) 4.5 K/uL (1.8-7.7); NEUTROPHILS % (AUTO) 57.1 % (42.2-75.2); PLATELET COUNT (AUTO) 301 K/uL (140-450); RED BLOOD CELL COUNT(AUTO) 4.93 MIL/uL (4.20-5.40); RED CELL DISTRIBUTION WIDTH 15.3 % (11.6-13.7); WHITE BLOOD COUNT (AUTO) 7.9 K/uL (4.8-10.8)
[2024-01-14 05:07] LABS: ALBUMIN 3.4 g/dL (3.4-5.0); ANION GAP 5.7 (8-16); CALCIUM 8.6 mg/dL (8.5-10.1); CARBON DIOXIDE 37.6 mmol/L (21-32); CREATININE 0.8 mg/dL (0.6-1.3); POTASSIUM 3.3 mmol/L (3.5-5.1); TOTAL BILIRUBIN 0.4 mg/dL (0.0-1.0); TOTAL PROTEIN, SERUM 6.9 g/dL (6.4-8.2)
[2024-01-14] MEDS: BENZOCAINE/MENTHOL 1 LOZ MM PRN (10:48)
[2024-01-14] MEDS: guaiFENesin 20 MG/ML UDC PO PRN (10:48)
[2024-01-15] VITALS (9 sets, daily range): BP systolic 119–122; BP diastolic 64–80; PULSE 67–100; RESP 18–22; TEMP 96.7–98.2; O2SAT 9–100
[2024-01-15] MEDS: HYDROcodone/APAP 5/325 MG 1 TAB TAB PO PRN (00:34)
[2024-01-15 04:44] LABS: BASOPHILS # (AUTO) 0.2 K/uL (0.00-0.22); BASOPHILS % (AUTO) 2.4 % (0.0-2.0); EOSINOPHILS # (AUTO) 0.3 K/uL (0-0.4); EOSINOPHILS % (AUTO) 4.2 % (0.0-4.0); HEMATOCRIT 39.4 % (36-48); HEMOGLOBIN 12.9 g/dL (12.0-16.0); LYMPHOCYTES # (AUTO) 1.3 K/uL (2.5-16.5); LYMPHOCYTES % (AUTO) 16.6 % (20.5-51.1); MEAN CORPUSCULAR HEMOGLOBIN 27 pg (27-31); MEAN CORPUSCULAR HGB CONC 33 g/dL (33-37); MEAN CORPUSCULAR VOLUME 81.4 fL (80-94); MONOCYTES # (AUTO) 0.5 K/uL (0.8-1.0); MONOCYTES % (AUTO) 5.9 % (1.7-9.3); NEUTROPHILS # (AUTO) 5.5 K/uL (1.8-7.7); NEUTROPHILS % (AUTO) 70.9 % (42.2-75.2); PLATELET COUNT (AUTO) 297 K/uL (140-450); RED BLOOD CELL COUNT(AUTO) 4.84 MIL/uL (4.20-5.40); RED CELL DISTRIBUTION WIDTH 15.1 % (11.6-13.7); WHITE BLOOD COUNT (AUTO) 7.8 K/uL (4.8-10.8)
[2024-01-15 04:59] LABS: ANION GAP 7.5 (8-16); CALCIUM 8.5 mg/dL (8.5-10.1); POTASSIUM 3.5 mmol/L (3.5-5.1)
[2024-01-15] MEDS: ACETYLCYSTEINE 20% (200 MG/ML) 200 MG/ML VIAL ONE (12:51)
[2024-01-15] MEDS: ACETYLCYSTEINE 20% (200 MG/ML) 200 MG/ML VIAL INH ONE (12:52)
[2024-01-16] VITALS (8 sets, daily range): BP systolic 101–130; BP diastolic 53–76; PULSE 85–104; RESP 18–20; TEMP 96.7–97.2; O2SAT 84–99
[2024-01-16 05:35] LABS: BASOPHILS # (AUTO) 0.1 K/uL (0.00-0.22); BASOPHILS % (AUTO) 1.2 % (0.0-2.0); EOSINOPHILS # (AUTO) 0.3 K/uL (0-0.4); EOSINOPHILS % (AUTO) 3.1 % (0.0-4.0); HEMATOCRIT 40.2 % (36-48); HEMOGLOBIN 13.3 g/dL (12.0-16.0); LYMPHOCYTES % (AUTO) 21.6 % (20.5-51.1); MEAN CORPUSCULAR HEMOGLOBIN 27 pg (27-31); MEAN CORPUSCULAR HGB CONC 33 g/dL (33-37); MEAN CORPUSCULAR VOLUME 81.3 fL (80-94); MONOCYTES # (AUTO) 0.6 K/uL (0.8-1.0); MONOCYTES % (AUTO) 6.1 % (1.7-9.3); NEUTROPHILS # (AUTO) 6.2 K/uL (1.8-7.7); PLATELET COUNT (AUTO) 320 K/uL (140-450); RED BLOOD CELL COUNT(AUTO) 4.95 MIL/uL (4.20-5.40); WHITE BLOOD COUNT (AUTO) 9.1 K/uL (4.8-10.8)
[2024-01-16 08:11] LABS: ANION GAP 11.1 (8-16); CALCIUM 8.8 mg/dL (8.5-10.1); CARBON DIOXIDE 33.1 mmol/L (21-32); POTASSIUM 3.2 mmol/L (3.5-5.1)
[2024-01-16] MEDS: NYSTATIN CRE 100 MU/GM 15 GM TUBE TP SCH (09:06)
[2024-01-16] MEDS: LIDOCAINE 5% 1 EA PATCH TP SCH (11:05)
[2024-01-17] VITALS (9 sets, daily range): BP systolic 107–140; BP diastolic 53–81; PULSE 75–104; RESP 16–20; TEMP 97.2–98.7; O2SAT 96–100
[2024-01-17] MEDS ORDERED: FURO-570 PO (12:27)
[2024-01-17] MEDS ORDERED: CARV3.122 PO (12:28)
[2024-01-17] MEDS ORDERED: ATOR40TA PO (12:29)
[2024-01-17] MEDS ORDERED: BUDE0.25 NEB (12:32)
[2024-01-17] MEDS ORDERED: ATRN INH (12:34)
[2024-01-17] MEDS ORDERED: DAPA5TAB PO (14:26)
[2024-01-17] MEDS ORDERED: HUM SUBQ (14:47)
[2024-01-17] MEDS ORDERED: INSU100S22 SUBQ (14:48)
[2024-01-17] MEDS ORDERED: MEMA10TA21 PO (16:34)
[2024-01-17] MEDS ORDERED: LEVO0.2T5 PO (16:34)
[2024-01-17] MEDS ORDERED: GABA400C PO (16:34)
[2024-01-17] MEDS ORDERED: SAXA5TAB PO (16:34)
[2024-01-18 00:25] VITALS: PULSE 93; RESP 20; O2SAT 100
[2024-01-18 04:00] VITALS: BP 105/57; PULSE 89; RESP 18; TEMP 97.5; O2SAT 98
[2024-01-18 08:00] VITALS: PULSE 78; RESP 19; O2SAT 99
[2024-01-18 08:07] VITALS: PULSE 82; RESP 18; O2SAT 97
[2024-01-18] MEDS ORDERED: UMEC1POW IH (14:00)
[2024-01-18] MEDS ORDERED: MECL-303 PO (14:01)
== END 2024-01-18 14:10 | disposition home health service (06) | DRG 871 ==
LOC: MED 12:17 → MTU 14:38
PROVIDERS: ADMIT Student in an Organized Health Care Education/Training Program; ATTEND Student in an Organized Health Care Education/Training Program
DX: A41.9 Sepsis, unspecified organism (principal); I50.23 Acute on chronic systolic (congestive) heart failure; J18.9 Pneumonia, unspecified organism; J96.01 Acute respiratory failure with hypoxia; J44.0 Chronic obstructive pulmonary disease with (acute) lower respiratory infection; I42.9 Cardiomyopathy, unspecified; J90 Pleural effusion, not elsewhere classified; E11.9 Type 2 diabetes mellitus without complications; I11.0 Hypertensive heart disease with heart failure; E78.5 Hyperlipidemia, unspecified; Z91.199 Patient's noncompliance with other medical treatment and regimen due to unspecified reason; Z85.850 Personal history of malignant neoplasm of thyroid; Z90.49 Acquired absence of other specified parts of digestive tract; Z79.899 Other long term (current) drug therapy; Z88.8 Allergy status to other drugs, medicaments and biological substances
CPT/HCPCS: 36415; 70450; 71045; 72100; 76604; 80048; 80053; 82948; 83880; 84484; 85025; 85379; 87040; 87081; 93005; 94010; 94640; 96365; 96375; 97116; 97163-GP; 97530; 99285; J0456; J0696; J1815; J1940; J2060; J2270; J2919; J3480; J7060; J7608; J7613; J7626; J7644; J8597; Q0092